=== PATIENT | female | born 1950 | race Caucasian/White ===

== ENCOUNTER 2018-07-07 08:40 | Emergency (ER) | payer OTHER, MEDICARE ==
[~2018-07-07] VITALS: Ht 152.4 cm; Wt 67.1 kg
[2018-07-07 08:43] VITALS: BP_SYST 143
[2018-07-07 09:20] VITALS: BP_SYST 140
== END 2018-07-07 09:20 | disposition home or self-care (01) ==
LOC: SED 08:40
DX: S01.81XA Laceration without foreign body of other part of head, initial encounter (principal); W22.8XXA Striking against or struck by other objects, initial encounter; Y93.89 Activity, other specified; Y92.89 Other specified places as the place of occurrence of the external cause; Y99.8 Other external cause status
CPT/HCPCS: 99281; 99283